=== PATIENT | male | born 1990 | race African-American/Black ===

== ENCOUNTER 2018-12-15 23:02 | Emergency (ER) | payer OTHER ==
[2018-12-16] MEDS ORDERED: ONDANSETRON 4 MG TAB.RAPDIS PO ONE (00:44)
--- NOTE | 2018-12-16 01:47 | ER Document Report ---
ED General - General Chief Complaint: Nausea/Vomiting Stated Complaint: VOMITING Time Seen by Provider: 12/16/18 00:44 TRAVEL OUTSIDE OF THE [place] IN LAST 30 DAYS: No - HPI Notes: Patient is a 28-year-old male that presents to the emergency department for chief complaint of nausea vomiting and diarrhea. Patient states he started feeling nauseated yesterday and has had multiple episodes of emesis today. He states he has had 4-5 episodes of diarrhea today as well. He reports diffuse abdominal cramping that is relieved after bowel movement. He states he has felt feverish and has had some chills. He states all of the members of his family have had similar symptoms recently. Past medical history: Negative Past Surgical History: Left Achilles tendon repair, right patellar tendon repair Social History: Denies tobacco and drug use. Endorses social alcohol use Family History: Reviewed and noncontributory for presenting illness Allergies: Reviewed, see documented allergy list. REVIEW OF SYSTEMS: CONSTITUTIONAL : No fever No chills No diaphoresis No recent illness EENT: No vision changes No congestion No sore throat CARDIOVASCULAR: No chest pain No palpitations RESPIRATORY: No shortness of breath No cough No difficulty breathing GASTROINTESTINAL: abdominal pain nausea vomiting diarrhea GENITOURINARY: No dysuria No hematuria No difficulty urinating MUSCULOSKELETAL: No back pain No leg pain No arm pain SKIN: No rashes No lesions LYMPHATIC: No swollen, enlarged glands. NEUROLOGICAL: No lightheadedness No headache No weakness No paresthesias PSYCHIATRIC: No anxiety No depression PHYSICAL EXAMINATION: Vital signs reviewed, nursing noted reviewed. GENERAL: Well-appearing, well-nourished and in no acute distress. HEAD: Atraumatic, normocephalic. EYES: Eyes appear normal, extraocular movements intact, sclera anicteric, conjunctiva are normal. ENT: nares patent, oropharynx clear without exudates. Moist mucous membranes. NECK: Normal range of motion, supple without lymphadenopathy LUNGS: Breath sounds clear to auscultation bilaterally and equal. No wheezes rales or rhonchi. HEART: Regular rate and rhythm without murmurs ABDOMEN: Soft, nontender, hyperactive bowel sounds. No rebound, guarding, or rigidity. No masses appreciated. EXTREMITIES: Nontender, good range of motion, no pitting or edema. NEUROLOGICAL: No focal neurological deficits. Moves all extremities spontaneously Motor and sensory grossly intact on exam. PSYCH: Normal mood, normal affect. SKIN: Warm, Dry, normal turgor, no rashes or lesions noted on exposed skin Past Medical History - Social History Smoking Status: Unknown if Ever Smoked Family History: Reviewed & Not Pertinent Patient has suicidal ideation: No Patient has homicidal ideation: No Renal/ Medical History: Denies: Hx Peritoneal Dialysis Physical Exam - Vital signs Vitals: Temp Pulse Resp BP Pulse Ox 98.6 F 82 16 134/75 H 96 12/15/18 23:08 12/15/18 23:08 12/15/18 23:08 12/15/18 23:08 12/15/18 23:08 Course - Re-evaluation Re-evalutation: 12/16/18 01:46 Vitals reviewed. Nursing notes reviewed. Patient given Zofran for symptom medic management. He has not had any emesis in the ER. He appears well- hydrated and is in no acute distress. His abdominal exam is soft with no focal tenderness to suggest cholecystitis or acute appendicitis. Patient symptoms consistent with likely viral gastroenteritis given his multitude of sick con tacts. He is able to tolerate oral intake currently and will be discharged home in stable condition. He was counseled on return precautions and verbalized understanding. - Vital Signs Vital signs: Temp Pulse Resp BP Pulse Ox 98.6 F 82 16 134/75 H 96 12/15/18 23:08 12/15/18 23:08 12/15/18 23:08 12/15/18 23:08 12/15/18 23:08 Discharge - Discharge Clinical Impression: Nausea vomiting and diarrhea Condition: Stable Disposition: HOME, SELF-CARE Instructions: Gastroenteritis (adult) ([facility]) Additional Instructions: Please return to the emergency department if you have any worsening, or concern of your symptoms. Please return to the emergency department if you develop chest pain, difficulty breathing, severe abdominal pain, or ongoing vomiting. Please follow-up with your primary care physician in 2-3 days and any other recommended physicians. If prescribed, take all medications as directed. If you have any questions or concerns do not hesitate to return the emergency department for evaluation. [] Prescriptions: Ondansetron [Zofran Odt 4 mg Tablet] 1 tab PO Q4H PRN #15 tab.rapdis PRN Reason: For Nausea/Vomiting Referrals: [facility] [Provider Group] - Follow up in 3-5 days
[2018-12-16 01:55] VITALS: BP 137/73
== END 2018-12-16 01:53 | disposition home or self-care (01) ==
LOC: ER 23:02
DX: R11.2 Nausea with vomiting, unspecified (principal); R19.7 Diarrhea, unspecified
CPT/HCPCS: 99283; S0119